=== PATIENT | female | born 1940 | race Caucasian/White ===

== ENCOUNTER 2018-11-20 17:11 | Inpatient (IN) | payer MEDICARE, OTHER | END 2018-11-24 15:30 | LOC: ER 17:11 → ORTHO 4S 11-21 06:45 → ED HOLD 21:06 | PROC: 0QS734Z Reposition Left Upper Femur with Internal Fixation Device, Percutaneous Approach (ICD-10-PCS; principal; 2018-11-21 15:22) | DX: S72.002A Fracture of unspecified part of neck of left femur, initial encounter for closed fracture (principal); N17.9 Acute kidney failure, unspecified ==

== ENCOUNTER 2019-06-17 09:49 | Outpatient (CLI) | payer MEDICARE, OTHER ==
[~2019-06-17 09:49] MED LIST: LEVO50TA8 PO; METO-411 PO; WARF2.5T PO; WARF5TAB PO
== END 2019-06-17 23:59 | disposition home or self-care (01) ==
LOC: 64 CT 09:49
PROVIDERS: ATTEND Family Medicine
DX: S42.031A Displaced fracture of lateral end of right clavicle, initial encounter for closed fracture (principal); S00.03XA Contusion of scalp, initial encounter; M26.69 Other specified disorders of temporomandibular joint; J34.89 Other specified disorders of nose and nasal sinuses; R06.02 Shortness of breath; Z79.01 Long term (current) use of anticoagulants; Z95.0 Presence of cardiac pacemaker; Z90.710 Acquired absence of both cervix and uterus; W19.XXXA Unspecified fall, initial encounter; Y93.89 Activity, other specified; Y92.89 Other specified places as the place of occurrence of the external cause; Y99.8 Other external cause status
CPT/HCPCS: 70450; 71046; 73030

== ENCOUNTER 2021-06-16 12:09 | Outpatient (CLI) | payer MEDICARE, OTHER ==
[~2021-06-16 12:09] MED LIST changes: -WARF2.5T PO; +WARF2.5T2 PO; -WARF5TAB PO; +WARF5TAB2 PO; +barium sulfate 450ml oral suspension ONE; +simethicone 125mg capsule ONE
== END 2021-06-16 23:59 | disposition home or self-care (01) ==
LOC: RAD 12:09
PROVIDERS: ATTEND Family Medicine
DX: K44.9 Diaphragmatic hernia without obstruction or gangrene (principal)
CPT/HCPCS: 74220

== ENCOUNTER 2022-12-08 09:22 | Day surgery (SDC) | payer MEDICARE, OTHER ==
[~2022-12-08] VITALS: Ht 162.6 cm; Wt 68.2 kg
[~2022-12-08 09:22] MED LIST changes: -barium sulfate 450ml oral suspension ONE; -simethicone 125mg capsule ONE
[2022-12-08 09:30] VITALS: BP 155/75
[2022-12-08] MEDS ORDERED: fentaNYL/PF 50MCG/1 ML 2ML syringe ONE (09:35)
[2022-12-08] MEDS ORDERED: LIDOcaine Viscous 15ml cup ONE (09:36)
[2022-12-08] MEDS ORDERED: MIDAZolam 1 MG/ML 5ML VIAL ONE (09:36)
[2022-12-08 10:43] VITALS: BP 132/55
[2022-12-08 10:53] VITALS: BP 133/63
[2022-12-08 11:03] VITALS: BP 154/68
[2022-12-08 11:13] VITALS: BP 157/75
== END 2022-12-08 11:20 | disposition home or self-care (01) ==
LOC: GI LAB 09:22
PROVIDERS: ATTEND Internal Medicine Gastroenterology
DX: R10.11 Right upper quadrant pain (principal); R13.10 Dysphagia, unspecified; D12.2 Benign neoplasm of ascending colon; K64.1 Second degree hemorrhoids; K44.9 Diaphragmatic hernia without obstruction or gangrene; K31.89 Other diseases of stomach and duodenum; D50.9 Iron deficiency anemia, unspecified; Z86.718 Personal history of other venous thrombosis and embolism; Z95.0 Presence of cardiac pacemaker; Z79.01 Long term (current) use of anticoagulants; Z88.8 Allergy status to other drugs, medicaments and biological substances
CPT/HCPCS: 43239; 45385; 99153; C1889; G0500; J2250; J3010; J7030; Z7512; 99152; A4620

== ENCOUNTER → 2023-01-01 | Outpatient (CLI) | payer MEDICARE, OTHER ==
[~2023-01-01] MED LIST changes: +BARIUM SULFATE 340 ML SUSP.RECON***PROCEDURE AREA ONLY**DONT ENTER PO ONE
== END | disposition home or self-care (01) ==
LOC: RAD 10:28
PROVIDERS: ATTEND Surgery
DX: K44.9 Diaphragmatic hernia without obstruction or gangrene (principal)
CPT/HCPCS: 74220

== ENCOUNTER 2023-03-16 11:03 | Outpatient (CLI) | payer MEDICARE, OTHER ==
[~2023-03-16 11:03] MED LIST changes: -BARIUM SULFATE 340 ML SUSP.RECON***PROCEDURE AREA ONLY**DONT ENTER PO ONE
[2023-03-16 12:11] LABS: BASOPHILS # (AUTO) 0.1 X10'3 (0-0.2); BASOPHILS % (AUTO) 0.7 % (0-1); EOSINOPHILS # (AUTO) 0.2 X10'3 (0-0.9); EOSINOPHILS % (AUTO) 3.1 % (0-6); HEMATOCRIT 34.4 % (35.0-45.0); HEMOGLOBIN 10.9 g/dl (12.0-16.0); LYMPHOCYTES # (AUTO) 1.7 X10'3 (1.1-4.8); LYMPHOCYTES % (AUTO) 23.2 % (21-51); MEAN CORPUSCULAR HEMOGLOBIN 26.1 PG (27.0-31.0); MEAN CORPUSCULAR HGB CONC 31.6 g/dL (33.0-36.5); MEAN CORPUSCULAR VOLUME 82.8 FL (78-98); MEAN PLATELET VOLUME 6.9 FL (7.4-10.4); MONOCYTES # (AUTO) 0.7 X10'3 (0-0.9); MONOCYTES % (AUTO) 10.2 % (2-12); NEUTROPHILS # (AUTO) 4.5 X10'3 (1.8-7.7); NEUTROPHILS % (AUTO) 62.8 % (42-75); PLATELET COUNT 279 X10'3 (140-440); RED BLOOD COUNT 4.16 X10'6 (4.20-5.60); WHITE BLOOD COUNT 7.1 X10'3 (4.5-11.0)
[2023-03-16 12:27] LABS: APTT 40 SECONDS (22-32)
[2023-03-16 12:35] LABS: ALANINE AMINOTRANSFERASE 13 U/L (12-78); ALBUMIN 3.5 G/DL (3.4-5.0); ALBUMIN/GLOBULIN RATIO 1.1 (1.1-1.5); ALKALINE PHOSPHATASE 64 IU/L (46-116); ANION GAP 4 (8-16); ASPARTATE AMINO TRANSFERASE 16 U/L (10-37); BILIRUBIN,TOTAL 0.3 MG/DL (0.1-1.0); BLOOD UREA NITROGEN 19 MG/DL (7-18); BUN/CREATININE RATIO 15.6 (10.0-20.0); CALCIUM 9.3 MG/DL (8.5-10.1); CHLORIDE 106 MMOL/L (99-107); CREATININE 1.22 MG/DL (0.40-0.90); GLUCOSE 97 MG/DL (70-104); POTASSIUM 4.9 MMOL/L (3.5-5.1); SODIUM 141 MMOL/L (135-145); TOTAL CARBON DIOXIDE 31.5 MMOL/L (24-32); TOTAL PROTEIN 6.7 G/DL (6.4-8.2); eGFR 42 ML/MIN
[2023-03-16] MEDS ORDERED: IODIXANOL 320 MG/ML INFUS..BTL 100ML IV ONE (12:56)
[2023-03-16 13:06] LABS: ANISOCYTOSIS 1+; MICROCYTOSIS 1+; PLATELET ESTIMATE NORMAL; POIKILOCYTOSIS FEW
== END 2023-03-16 23:59 | disposition home or self-care (01) ==
LOC: RAD 11:03
PROVIDERS: ATTEND Internal Medicine Cardiovascular Disease
DX: R91.8 Other nonspecific abnormal finding of lung field (principal); I35.0 Nonrheumatic aortic (valve) stenosis; R06.02 Shortness of breath; I65.23 Occlusion and stenosis of bilateral carotid arteries; R94.2 Abnormal results of pulmonary function studies; I70.0 Atherosclerosis of aorta; I51.7 Cardiomegaly; I25.10 Atherosclerotic heart disease of native coronary artery without angina pectoris; D73.89 Other diseases of spleen; J98.4 Other disorders of lung; K76.89 Other specified diseases of liver; K59.00 Constipation, unspecified; Z90.710 Acquired absence of both cervix and uterus; Z96.641 Presence of right artificial hip joint
CPT/HCPCS: 36415; 71046; 71275; 74174; 80053; 83880; 85008; 85025; 85610; 85730; 93880; 94010; 94727; 94729; A6258; J3490; Q9967

== ENCOUNTER 2023-05-15 15:27 | Emergency (ER) | payer MEDICARE, OTHER ==
[~2023-05-15] VITALS: Ht 162.6 cm; Wt 64.1 kg
[2023-05-15 16:04] LABS: BASOPHILS # (AUTO) 0.1 X10'3 (0-0.2); BASOPHILS % (AUTO) 0.9 % (0-1); EOSINOPHILS # (AUTO) 0.1 X10'3 (0-0.9); EOSINOPHILS % (AUTO) 1.6 % (0-6); HEMATOCRIT 35.4 % (35.0-45.0); HEMOGLOBIN 11.2 g/dl (12.0-16.0); LYMPHOCYTES # (AUTO) 2.4 X10'3 (1.1-4.8); LYMPHOCYTES % (AUTO) 26.4 % (21-51); MEAN CORPUSCULAR HEMOGLOBIN 25.3 PG (27.0-31.0); MEAN CORPUSCULAR HGB CONC 31.7 g/dL (33.0-36.5); MEAN CORPUSCULAR VOLUME 79.6 FL (78-98); MEAN PLATELET VOLUME 7.1 FL (7.4-10.4); MONOCYTES % (AUTO) 10.9 % (2-12); NEUTROPHILS # (AUTO) 5.5 X10'3 (1.8-7.7); NEUTROPHILS % (AUTO) 60.2 % (42-75); PLATELET COUNT 373 X10'3 (140-440); RED BLOOD COUNT 4.45 X10'6 (4.20-5.60); RED CELL DISTRIBUTION WIDTH 17.7 % (11.5-14.5); WHITE BLOOD COUNT 9.1 X10'3 (4.5-11.0)
[2023-05-15 16:13] LABS: ALANINE AMINOTRANSFERASE 16 U/L (12-78); ALBUMIN 3.6 G/DL (3.4-5.0); ALBUMIN/GLOBULIN RATIO 1.1 (1.1-1.5); ALKALINE PHOSPHATASE 63 IU/L (46-116); ANION GAP 11 (8-16); ASPARTATE AMINO TRANSFERASE 17 U/L (10-37); BILIRUBIN,TOTAL 0.4 MG/DL (0.1-1.0); BLOOD UREA NITROGEN 29 MG/DL (7-18); BUN/CREATININE RATIO 18.4 (10.0-20.0); CALCIUM 9.4 MG/DL (8.5-10.1); CHLORIDE 104 MMOL/L (99-107); CREATININE 1.58 MG/DL (0.40-0.90); GLUCOSE 101 MG/DL (70-104); POTASSIUM 4.3 MMOL/L (3.5-5.1); SODIUM 139 MMOL/L (135-145); TOTAL CARBON DIOXIDE 23.9 MMOL/L (24-32); eCRCL 23 ML/MIN; eGFR 31 ML/MIN
[2023-05-15 16:20] LABS: PRO BRAIN NATRIURETIC PEPTIDE 5869 PG/ML (0-450)
[2023-05-15 16:51] LABS: APTT 32 SECONDS (22-32); INR 1.9 INR; PROTHROMBIN TIME 19.8 SECONDS (9.0-12.0)
[2023-05-15] MEDS ORDERED: etomidate 2mg/ml inj. IV ONE ×2 (17:25→19:10)
--- NOTE | 2023-05-15 18:45 | NUR ---
DR VALLADARES NOTIFIED OF THAT PT IS BACK IN AFIB WITH HR IN 130S. NO NEW ORDERS AT THIS TIME, HE WILL CONFER WITH DR AHUJA TO NEXT STEPS.
[2023-05-15] MEDS ORDERED: amiodarone 50MG/ML inj IV ONE (19:10)
[2023-05-15] MEDS ORDERED: AMI200T PO (19:16)
[2023-05-15] MEDS ORDERED: diltiazem 5mg/ml 5ml inj. IV ONE (19:25)
[2023-05-15] MEDS ORDERED: diltiazem 30mg tablet PO ONE (19:25)
[2023-05-15] MEDS ORDERED: DILT360T2 PO ×2 (19:47)
[2023-05-15 20:21] VITALS: BP 141/80; PULSE 60; RESP 10; O2SAT 100
[2023-05-30] MEDS ORDERED: MAGN250T11 PO (13:43)
[2023-05-30] MEDS ORDERED: CYAN-34 PO (13:43)
[2023-05-30] MEDS ORDERED: VITAMIN D PO (13:43)
[2023-05-30] MEDS ORDERED: DILTIAZEM PO (13:43)
[2023-05-30] MEDS ORDERED: ASCO500T19 PO (13:43)
[2023-06-06] MEDS ORDERED: CHOL20002 PO (20:35)
[2023-06-06] MEDS ORDERED: DILT360C24 PO (20:35)
== END 2023-05-15 20:23 | disposition home or self-care (01) ==
LOC: ER 15:28
DX: I48.20 Chronic atrial fibrillation, unspecified (principal); Z90.49 Acquired absence of other specified parts of digestive tract; Z79.899 Other long term (current) drug therapy; Z88.5 Allergy status to narcotic agent; Z79.1 Long term (current) use of non-steroidal anti-inflammatories (NSAID)
CPT/HCPCS: 36415; 71045; 80053; 83880; 84484; 85025; 85610; 85730; 92960; 93005; 96374; 99285; J3490; 94760; 96375; A4615; A4620

== ENCOUNTER 2023-06-28 10:01 | Emergency (ER) | payer MEDICARE, OTHER ==
[~2023-06-28] VITALS: Ht 165.1 cm; Wt 54.5 kg
[~2023-06-28 10:01] MED LIST changes: +ASCO500T19 PO; +CHOL20002 PO; +CYAN-34 PO; +DILT360C24 PO; +MAGN250T11 PO
[2023-06-28 10:09] VITALS: TEMP 98
[2023-06-28] MEDS ORDERED: diltiazem 5mg/ml 5ml inj. IV ONE (10:35)
[2023-06-28] MEDS ORDERED: diltiazem-NS 100mg/100ml 100 ML IV SCH (10:45)
--- NOTE | 2023-06-28 10:52 | NUR ---
Spoke with Dr Morales regarding update in patient condition - HR has mildly responded to 10mg Cardizem (125 from 150s) and patient acknowleges and exhibits more comfortable work of breath. denies SOB at this time.
--- NOTE | 2023-06-28 10:56 | NUR ---
While in the room with patient, rhythm converted to paced rhythm with a rate of 60. MD aware, repeat EKG being completed.
[2023-06-28 11:05] LABS: INR 3.2 INR; PROTHROMBIN TIME 32.1 SECONDS (9.0-12.0)
[2023-06-28 11:10] LABS: BASOPHILS # (AUTO) 0.1 X10'3 (0-0.2); BASOPHILS % (AUTO) 0.8 % (0-1); EOSINOPHILS # (AUTO) 0.2 X10'3 (0-0.9); EOSINOPHILS % (AUTO) 2.2 % (0-6); HEMATOCRIT 33.3 % (35.0-45.0); HEMOGLOBIN 10.5 g/dl (12.0-16.0); LYMPHOCYTES # (AUTO) 1.7 X10'3 (1.1-4.8); LYMPHOCYTES % (AUTO) 23.3 % (21-51); MEAN CORPUSCULAR HEMOGLOBIN 25.6 PG (27.0-31.0); MEAN CORPUSCULAR HGB CONC 31.6 g/dL (33.0-36.5); MEAN CORPUSCULAR VOLUME 81.1 FL (78-98); MEAN PLATELET VOLUME 7.2 FL (7.4-10.4); MONOCYTES # (AUTO) 0.7 X10'3 (0-0.9); MONOCYTES % (AUTO) 9.9 % (2-12); NEUTROPHILS # (AUTO) 4.7 X10'3 (1.8-7.7); NEUTROPHILS % (AUTO) 63.8 % (42-75); PLATELET COUNT 192 X10'3 (140-440); RED BLOOD COUNT 4.11 X10'6 (4.20-5.60); RED CELL DISTRIBUTION WIDTH 19.9 % (11.5-14.5); WHITE BLOOD COUNT 7.3 X10'3 (4.5-11.0)
[2023-06-28 11:11] LABS: ALANINE AMINOTRANSFERASE 15 U/L (12-78); ALBUMIN 3.2 G/DL (3.4-5.0); ALKALINE PHOSPHATASE 54 IU/L (46-116); ANION GAP 11 (8-16); ASPARTATE AMINO TRANSFERASE 15 U/L (10-37); BILIRUBIN,TOTAL 0.3 MG/DL (0.1-1.0); BLOOD UREA NITROGEN 24 MG/DL (7-18); CALCIUM 9.3 MG/DL (8.5-10.1); CHLORIDE 105 MMOL/L (99-107); GLUCOSE 134 MG/DL (70-104); POTASSIUM 4.4 MMOL/L (3.5-5.1); SODIUM 139 MMOL/L (135-145); TOTAL CARBON DIOXIDE 23.4 MMOL/L (24-32); TOTAL PROTEIN 6.5 G/DL (6.4-8.2); eCRCL 24 ML/MIN; eGFR 33 ML/MIN
[2023-06-28 11:18] LABS: PRO BRAIN NATRIURETIC PEPTIDE 6798 PG/ML (0-450)
[2023-06-28 12:34] LABS: ANISOCYTOSIS 2+; PLATELET ESTIMATE NORMAL
[2023-06-28 12:35] LABS: ELLIPTOCYTES 1+; POIKILOCYTOSIS 1+
[2023-06-28 14:28] VITALS: BP 127/94; PULSE 60; RESP 14; O2SAT 99
== END 2023-06-28 14:30 | disposition home or self-care (01) ==
LOC: ER 10:01
DX: I48.91 Unspecified atrial fibrillation (principal); Z88.8 Allergy status to other drugs, medicaments and biological substances; Z79.899 Other long term (current) drug therapy; Z98.890 Other specified postprocedural states; Z90.710 Acquired absence of both cervix and uterus
CPT/HCPCS: 36415; 71045; 80053; 83880; 84484; 85008; 85025; 85610; 93005; 96374; 99285; J3490; J7030